=== PATIENT | male | born 1940 | race Caucasian/White ===

== ENCOUNTER 2022-01-14 21:16 | Emergency (ER) | payer OTHER ==
[~2022-01-14] VITALS: Ht 177.8 cm; Wt 99.8 kg
[2022-01-14] MEDS ORDERED: IPRATROPIUM/ALBUTEROL SULFATE 3 ML SOLUTION IH ONE (21:30)
[2022-01-14 21:51] LABS: BASOPHILS % (AUTO) 0.3 % (0.0-5.0); EOSINOPHILS % (AUTO) 2.1 % (0.0-8.0); HEMATOCRIT 48.6 % (42-54); LYMPHOCYTES % (AUTO) 33.4 % (21.0-51.0); MEAN CORPUSCULAR HEMOGLOBIN 32.6 pg (27.0-33.0); MEAN CORPUSCULAR HGB CONC 33.7 g/dL (32.0-36.0); MEAN CORPUSCULAR VOLUME 96.6 fL (79-99); MONOCYTES % (AUTO) 8.9 % (3.0-13.0); NEUTROPHILS % (AUTO) 54.8 % (40.0-77.0); PLATELET COUNT (AUTO) 125 K/uL (130-400); RED BLOOD CELL COUNT(AUTO) 5.03 MIL/uL (4.50-6.20); RED CELL DISTRIBUTION WIDTH 14.2 % (11.0-15.5)
[2022-01-14 22:04] VITALS: BP 120/69
[2022-01-14 22:05] LABS: CREATININE 1.5 mg/dL (0.5-1.5)
[2022-01-14 22:09] LABS: ALBUMIN 3.7 g/dL (3.5-5.0); TOTAL PROTEIN, SERUM 7.9 g/dL (6.0-8.3)
[2022-01-14] MEDS ORDERED: IBUP-1493 PO (22:44)
[2022-01-14] MEDS ORDERED: ALBU90AE2 IH (22:44)
[2022-01-14] MEDS ORDERED: PRED20TA3 PO (22:44)
[2022-01-14] MEDS ORDERED: OSEL75 PO (22:44)
== END 2022-01-14 22:56 | disposition home or self-care (01) ==
LOC: EDH 21:16
DX: J10.1 Influenza due to other identified influenza virus with other respiratory manifestations (principal); J20.9 Acute bronchitis, unspecified; Z20.822 Contact with and (suspected) exposure to COVID-19; E11.9 Type 2 diabetes mellitus without complications; E78.00 Pure hypercholesterolemia, unspecified; I10 Essential (primary) hypertension; Z98.890 Other specified postprocedural states
CPT/HCPCS: 99283; 71045; 87635; 80053; 83880; 85025; 87804 ×2; 36415; 93005; 94640; C9803